=== PATIENT | female | born 1955 | race Caucasian/White ===

== ENCOUNTER → 2016-05-13 | Outpatient (CLI) | payer OTHER ==
[~2016-05-13] MED LIST: IOPAMIDOL (ISOVUE 370) 100 ML BTL IV ONE
--- NOTE | 2016-05-13 17:24 | CT ---
CT Angiography of the Abdomen Clinical Indications: Follow up aortic aneurysm. Technique: Thinly collimated multidetector helical data were obtained through the abdomen during the arterial phase of contrast enhancement. Repeat 5-mm cut images were then obtained in venous phase. Images were then transferred to an independent workstation where multiplanar and three-dimensional r econstructions were performed by the interpreting physician. 90 mL of Isovue-370 were administered i ntravenously by bolus power injection without complication. Dose reduction techniques were utilized. COMPARISON: February 2012, February 2014. 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 The thrombosed sac measures 1.3 x 1.1 cm. The subjacent aorta measure s 1.2 x 1.4 cm. No new ulceration, aneurysm, or dissection. The rest of the vessels are normal. Th is includes three right-sided renal arteries, single left dominant renal artery, widely patent SMA, I MA, and celiac trunk. The visceral vessels are normal, as well. Bilateral iliac arteries are normal down to the common fem oral arteries. CT Abdomen: Lung bases are clear. No developing adenopathy. No fluid collection or mass. There is a moderate amount of stool throughout the colon. The patient is status post cholecystectomy. Impressions 1. 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 2. No new aneurysm or ulceration. 3. Constipation. E:amm
== END ==
LOC: FIMAGING 11:43
PROVIDERS: ATTEND Internal Medicine Interventional Cardiology
DX: I71.4 Abdominal aortic aneurysm, without rupture (principal); K59.00 Constipation, unspecified
CPT/HCPCS: Q9967

== ENCOUNTER 2017-04-16 09:23 | Observation (INO) | payer OTHER ==
[2017-04-16] MEDS ORDERED: DIAZEPAM 5 MG TAB PO ONE (09:30)
[2017-04-16] MEDS ORDERED: NS 1,000 ML IV ONE (09:30)
[2017-04-16] MEDS ORDERED: ASPIRIN EC 325 MG TAB PO ONE ×2 (09:30→10:08)
[2017-04-16] MEDS ORDERED: FAMOTIDINE 20 MG TAB PO ONE (09:30)
[2017-04-16] MEDS ORDERED: diphenhydrAMINE 25 MG CAP PO ONE ×2 (09:30→10:08)
--- NOTE | 2017-04-16 09:51 | CPEKG ---
Heart Rate: 68 RR Interval: 882 P-R Interval: 188 QRSD Interval: 106 QT Interval: 404 QTC Interval: 430 P [place]: 62 QRS [place]: -40 T Wave [place]: 62 EKG Severity - BORDERLINE ECG - EKG Impression: SINUS RHYTHM EKG Impression: BORDERLINE IVCD WITH LAD Electronically Signed By: Maxwell Russell 16-Apr-2017 11:44:14
[2017-04-16] MEDS ORDERED: FAMOTIDINE 20 MG TAB ONE (10:08)
[2017-04-16] MEDS ORDERED: DIAZEPAM 5 MG TAB ONE (10:09)
[2017-04-16 10:11] LABS: PLATELET COUNT 182 10^3/uL (150-400)
[2017-04-16 10:20] LABS: INR 0.97 (0.83-1.16); PROTIME(PATIENT) 13.1 SEC (12.0-15.0)
[2017-04-16] MEDS ORDERED: MIDAZOLAM 2 MG/2 ML VIAL ONE (11:07)
[2017-04-16] MEDS ORDERED: LIDOCAINE 1% 300 MG/30 ML SDV ONE (11:07)
[2017-04-16] MEDS ORDERED: fentaNYL 100 MCG/2 ML INJ ONE (11:07)
[2017-04-16] MEDS ORDERED: VERAPAMIL 5 MG/2 ML VIAL ONE (11:07)
[2017-04-16] MEDS ORDERED: HEPARIN 10,000 UNIT/10 ML MDV ONE (11:07)
[2017-04-16] MEDS ORDERED: IOPAMIDOL (ISOVUE-370) 150 ML BTL IV ONE ×2 (11:07→12:46)
--- NOTE | 2017-04-16 11:36 | PDPROPOC ---
Sedation Plan of Care Sedation Plan of Care: vital signs stable, mental status noted, patient educated of risks, benefits, alternatives, patient can tolerate sedation Planned drugs: other (in light of previous reaction under consious sedation will ask anesthesia for assistance.) Mallampati Reference Image:
--- NOTE | 2017-04-16 11:37 | PDHPUP ---
History & Physical Update H&P update statement: This history and physical update is based on an assessment of the patient which was completed after admission or registration (within 24 hours), but prior to the surgery/procedure. H&P update: H&P reviewed & patient examined, no change in patient's condition since H&P completed
[2017-04-16] MEDS ORDERED: PROPOFOL/EMULSION 500 MG/50 ML BOTTLE IV ONE ×2 (11:44→12:31)
[2017-04-16] MEDS ORDERED: NITROGLYCERIN 1,500 MCG/15 ML VIAL MISC ONE (12:40)
--- NOTE | 2017-04-16 12:50 | PDANEPAE ---
ANE Past Medical History - Cardiovascular History Hx Hypertension: No Hx Arrhythmias: No Hx Coronary Artery / Peripheral Vascular Disease: Yes Hx CHF / Valvular Disease: No Hx Palpitations: No - Pulmonary History Hx COPD: No Hx Asthma/Reactive Airway Disease: No Hx Recent Upper Respiratory Infection: No Hx Oxygen in Use at Home: No Hx Sleep Apnea: No - Endocrine History Hx Diabetes: No Hypothyroid: No Hyperthyroid: No Obesity: no ANE Review of Systems Review of Systems: - Exercise capacity METS (RN): 4 METS ANE Patient History - Allergies Allergies/Adverse Reactions: bisacodyl Allergy (Verified 12/07/13 09:42) bupropion HCl [From Wellbutrin] Allergy (Verified 12/07/13 09:53) - Home Medications Home Medications: Aspirin [Aspirin 81mg (*)] 81 mg PO DAILY 12/07/13 [Last Taken 04/15/17] Cholecalciferol Vit D3 [Vitamin D3 (*)] 5,000 units PO DAILY 12/07/13 [Last Taken 04/15/17] Escitalopram Oxalate [Lexapro] 20 mg PO DAILY 12/07/13 [Last Taken 04/15/17] [place]-3 Fatty Acids [Fish Oil 1000 mg (*)] 1,000 mg PO DAILY 12/07/13 [Last Taken 04/15/17] Simvastatin [Zocor] 80 mg PO DAILY18 12/07/13 [Last Taken 04/15/17] Calcium Carbonate [Oyster Shell Calcium 500 mg (*)] 500 mg PO DAILY 04/15/17 [ Last Taken 04/15/17] Diclofenac Sodium 1% [Voltaren Gel (*)] 1 juan TP DAILY PRN 04/15/17 [Last Taken Unknown] Herbals/Supplements -Info Only 1 ea PO DAILY 04/15/17 [Last Taken 04/15/17] Nitroglycerin [Nitrostat 0.4 mg (*)] 0.4 mg PO DAILY PRN 04/15/17 [Last Taken Unknown] - Anes Hx Anes Hx: no prior problems - Smoking Hx Smoking Status: Never smoked - Alcohol Use Alcohol Use: Rarely - Family Anes Hx Family Anes Hx: none ANE Labs/Vital Signs - Labs Result Diagrams: 04/16/17 10:00 04/16/17 10:00 - Vital Signs Height: 165.1 cm Weight: 81.647 kg ANE Physical Exam - Airway Neck exam: FROM Mallampati Score: Class 2 Mouth exam: normal dental/mouth exam - Pulmonary Pulmonary: no respiratory distress, no rales or rhonchi, clear to auscultation - Cardiovascular Cardiovascular: regular rate and rhythym ANE Anesthesia Plan Anesthesia Plan: GA with mask, MAC Total IV Anesthesia: Yes
[2017-04-16] MEDS ORDERED: CLOPIDOGREL BISULFATE 75 MG TAB ONE (13:15)
[2017-04-16] MEDS ORDERED: ONDANSETRON 4 MG/2 ML VIAL IVP PRN (13:35)
[2017-04-16] MEDS ORDERED: TEMAZEPAM 15 MG CAP PO PRN (13:35)
[2017-04-16] MEDS ORDERED: ATROPINE SULFATE 1 MG/10 ML SYR IVP PRN (13:35)
[2017-04-16] MEDS ORDERED: CLOPIDOGREL BISULFATE 75 MG TAB PO ONE ×2 (13:35→13:45)
[2017-04-16] MEDS ORDERED: NITROGLYCERIN 0.4 MG BTL SL PRN (13:35)
--- NOTE | 2017-04-16 13:39 | PDDXCAT ---
Diagnostic Cath Note - . Date: 04/16/17 Supervisor Cartography: Kelvin Indication: CCC Class III and IV angina on medical treatment - Procedure Access: left wrist Procedure: left heart catheterization, coronary angiography, left ventriculogram - Materials Left Heart Cath size: 5F Left Heart Cath materials: standard multipack (JL4, JR4, pigtail) - Findings-Left Heart Catheterization LM: Unobstructed LAD: Widely stented in the proximal mid LAD. Focal area of narrowing in the mid stent of 80%. LCX: Unobstructed RCA: Dominant: Unobstructed EDP: 15 mm of mercury LVEF: 72 Wall motion: Normal Complications: None Estimated blood loss: <50ml Closure method: TR Band Assessment: Focal area of stenosis in the mid LAD in site of prior stenting. Preserved LV systolic function. Plan: PCI Intervention: After reviewing diagnostic angiograms elected to proceed with PCI. Patient was anticoagulated fully with heparin. Therapeutic ACT was confirmed. The radial artery sheath was upsized to 6 Polish. Using a 6 Polish EBU 3 guiding catheter left main was selectively intubated. Guiding shots were performed. Using a 0.014 luge wire the LAD was crossed and the wire placed in the distal vessel. Focal area of stenosis was primarily stented with a 3.0 x 16 mm synergy stent. A 3.5 x 20 mm synergy stent was placed proximally. The new stents were post dilated with a 3.75 x 20 mm noncompliant balloon. For details please see attached computer report. Technical difficulties: Small aortic root requiring 3.0 EBU guiding catheter. Propofol anesthesia for comfort and to avoid radial artery spasm. Complications none. Final diagnosis successful PCI and stenting of the LAD. Patient Problems: Problems Problem Status Onset Status post insertion of drug-eluting stent into left anterior descending (LAD) artery Acute Coronary artery disease Acute
--- NOTE | 2017-04-16 15:08 | POSTANESTH ---
Post Anesthetic Evaluation Cardiovascular Status: Normal, Stable Respiratory Status: Normal, Stable Level of Consciousness/Mental Status: Can Participate in Eval Pain Control: Adequate, Prn Tx Ordered Nausea/Vomiting Control: Adequate, Prn Tx Ordered Complications Possibly Related to Anesthesia: None Noted
--- NOTE | 2017-04-16 15:59 | CPEKG ---
Heart Rate: 60 RR Interval: 1000 P-R Interval: 208 QRSD Interval: 110 QT Interval: 428 QTC Interval: 428 P [place]: 65 QRS [place]: -41 T Wave [place]: 6 EKG Severity - ABNORMAL ECG - EKG Impression: SINUS RHYTHM EKG Impression: NONSPECIFIC IVCD WITH LAD EKG Impression: CONSIDER ANTEROSEPTAL INFARCT Electronically Signed By: Maxwell Russell 16-Apr-2017 15:59:21
[2017-04-16] MEDS: ACETAMINOPHEN 500 MG TAB PO PRN (20:55)
[2017-04-16] MEDS ORDERED: ATORVASTATIN CALCIUM 40 MG TAB PO SCH (21:00)
[2017-04-16] MEDS ORDERED: ESCITALOPRAM OXALATE 10 MG TAB PO SCH (21:00)
[2017-04-17 07:09] VITALS: BP 117/65; PULSE 61; RESP 12; TEMP 98.3; O2SAT 95
[2017-04-17] MEDS ORDERED: OMEGA-3 FATTY ACIDS 1,000 MG CAP PO SCH (09:00)
[2017-04-17] MEDS ORDERED: ASPIRIN EC 325 MG TAB PO SCH (09:00)
[2017-04-17] MEDS ORDERED: CLOPIDOGREL BISULFATE 75 MG TAB PO SCH (09:00)
[2017-04-17] MEDS ORDERED: CHOLECALCIFEROL VIT D3 1,000 UNITS TAB PO SCH (09:00)
[2017-04-17] MEDS ORDERED: ASPIRIN 81 MG CHEWABLE TAB PO SCH (09:00)
[2017-04-17] MEDS ORDERED: CALCIUM CARBONATE 500 MG TAB PO SCH (09:00)
[2017-04-17] MEDS: ACETAMINOPHEN 500 MG TAB PO PRN (09:21)
--- NOTE | 2017-04-17 10:04 | ASMTCASEMG ---
Living Arrangements What is your living Answers: With Spouse arrangement? Who do you live with? Type Of Residence What kind of residence do Answers: House you live in? Discharge Plan Comments Coordination Status Comments Notes: CM spoke w/ LILY Murry regarding d/c POC. Pt is a 62 y/o female admitted for a CAF s/p stent to LAD procedure. Anticipates that pt will d/c independent when medically stable w/ supportive . No therapies ordered at this time. CM available for d/c needs. Plan: Independent Date Signed: 04/17/2017 10:04 AM Electronically Signed By:EDUARDO Crouch
--- NOTE | 2017-04-17 12:08 | GDS ---
[f rep st] DISCHARGE SUMMARY DIAGNOSES: 1. New-onset angina with [place] Cardiac System 3 symptoms, status post percutaneous transluminal c oronary angioplasty and stenting to [id number]-[id number] left anterior descending in this admission. 2. History of coronary artery disease with acute coronary syndrome in the past, percutaneous coronar y intervention of left anterior descending in 1999, and then subsequent stenting in 2001 and 2006. 3. 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 4. Dyslipidemia. 5. Hypothyroidism. PROCEDURES: 1. 04/16/2017, left heart catheterization, which showed an unobstructed left main, widely stented LA D in the proximal mid region with a focal area of stenosis in mid stent at 80%, unobstructed left cir cumflex, unobstructed right coronary artery, LVEDP of 15, LVEF of 72%. 2. Percutaneous intervention to the vlspmutv-mu-dge LAD with a 3.0 x 16 Synergy stent as well as 3.5 x 20 mm Synergy stent in LAD. BRIEF HISTORY: Please see dictated H and P from our office for complete details. In brief, the galilea apolinar is a 62-year-old female with previous single-vessel disease affecting her LAD, who started to not e exertional angina in the recent few weeks. She proceeded to outpatient MPI, which was abnormal wit h chest pain on exertion, as well as a 1.8-second pause. She was therefore advised to proceed to lef t heart catheterization for risk stratification. HOSPITAL COURSE BY PROBLEM: 1. New-onset exertional angina equivalent CCS 3 symptoms: She was found to have severely obstructiv e disease affecting focal area of her LAD. This was treated with PTCA and stenting x2. On day of , she has not noticed further chest pain. Her left wrist site was cannulated and is stable at time of discharge. 2. Dyslipidemia: Her total cholesterol is 155, LDL cholesterol 79, HDL cholesterol 52, and triglyce rides of 120. RESULTS PENDING: None. DISCHARGE PHYSICAL EXAMINATION: VITAL SIGNS: Blood pressure 117/65, heart rate 61, respirations 12, O2 saturation 95% on room air, temp of 98.3 degrees Fahrenheit. GENERAL: A pleasant female in no a pparent distress. HEENT: Normocephalic, atraumatic. Eyes are without scleral icterus. HEART: Reg ular rate and rhythm. LUNGS: Clear. Left wrist site has a 2+ radial pulse. EXTREMITIES: Warm, an d she is neurovascularly intact. LABORATORY DATA: BMP with sodium 145, potassium 4.1, chloride 108, CO2 25, BUN 12, creatinine 0.8, g lucose of 84. CBC with WBC 4.86, hemoglobin 15.5, hematocrit 39, platelet count 182. RESULTS PENDING: None. DIET: Cardiac diet. ACTIVITY: Wrist precautions were reviewed. Patient also advised to consider cardiac rehab. DISCHARGE MEDICATIONS: Please see med reconciliation. Her new medication is Plavix 75 mg p.o. daily . This was sent via [employer] through [employer]. Other home medications are being continued without c hanges; these include Lexapro, cholecalciferol, simvastatin, omega-3 fatty acids, nitroglycerin, calc ium, aspirin, and Voltaren gel. FOLLOWUP INSTRUCTIONS: 1. Wrist precautions. 2. Follow up in 1 week's time with Radha. 3. Follow up with Dr. Warren in 1 month's time. /[id number]/MODL
--- NOTE | 2017-04-17 12:26 | ASDISCHSUM ---
Discharge Information Plan Status:Home with No Needs Medically Cleared to Leave:04/16/2017 Discharge Date:04/17/2017 11:22 AM CM D/C Disposition: ADT D/C Disposition:Home, Routine, Self-Care Projected Discharge Date:04/17/2017 12:00 AM Transportation at D/C: Discharge Delay Reason: Follow-Up Date:04/17/2017 12:00 AM Discharge Slot: Final Diagnosis: Placement Information Patient Contact Information Contact Name:DANYELL Relationship: Address:[address] Work Phone: City:[place] Alternate Phone: [facility]/Zip Code:[place] [address] Email: Financial Information Financial Class:[facility] Primary Plan Desc:[employer] LOCAL Primary Plan Number:[id number] Secondary Plan Desc: Secondary Plan Number: Assessment Information [facility] Initial CM Assessment Living Arrangements What is your living Answers: With Spouse arrangement? Who do you live with? Type Of Residence What kind of residence do Answers: House you live in? Discharge Plan Comments Coordination Status Comments Notes: CM spoke w/ LILY Murry regarding d/c POC. Pt is a 62 y/o female admitted for a CAF s/p stent to LAD procedure. Anticipates that pt will d/c independent when medically stable w/ supportive . No therapies ordered at this time. CM available for d/c needs. Plan: Independent Date Signed: 04/17/2017 10:04 AM Electronically Signed By:EDUARDO Crouch Intervention Information
== END 2017-04-17 11:22 | disposition home or self-care (01) ==
LOC: FCATH 09:23 → F2W 15:51
PROVIDERS: ADMIT Internal Medicine Interventional Cardiology; ATTEND Internal Medicine Interventional Cardiology
PROC: B2111ZZ Fluoroscopy of Multiple Coronary Arteries using Low Osmolar Contrast (ICD-10-PCS; principal; 2017-04-16)
PROC: 4A023N7 Measurement of Cardiac Sampling and Pressure, Left Heart, Percutaneous Approach (ICD-10-PCS; principal; 2017-04-16)
PROC: 027034Z Dilation of Coronary Artery, One Artery with Drug-eluting Intraluminal Device, Percutaneous Approach (ICD-10-PCS; principal; 2017-04-16)
PROC: B2151ZZ Fluoroscopy of Left Heart using Low Osmolar Contrast (ICD-10-PCS; principal; 2017-04-16)
DX: I25.119 Atherosclerotic heart disease of native coronary artery with unspecified angina pectoris (principal); E78.5 Hyperlipidemia, unspecified; I71.4 Abdominal aortic aneurysm, without rupture; E03.9 Hypothyroidism, unspecified
CPT/HCPCS: 92928; 93005; 93458; C1725; C1769; C1887; G0378; C1874; C9600; J1644; J2250; J2704; J3010; Q9967

== ENCOUNTER 2017-09-26 10:42 | Day surgery (SDC) | payer OTHER ==
[2017-09-26] MEDS ORDERED: LR 1,000 ML IV ONE (11:02)
[2017-09-26] MEDS ORDERED: LIDOCAINE 1% 2 ML INJ ID PRN (11:02)
--- NOTE | 2017-09-26 11:56 | PDGENHP ---
History & Physical Chief Complaint: screening History of Present Illness: screening Pertinent Past, Social, Family History: no tobacco. no alcohol. grandparnet with cc Relevant Physical Exam: A+Ox3. CTA. S12S2. +BS, soft nt Cardiorespiratory Assessment: class 3
--- NOTE | 2017-09-26 12:06 | PDANEPAE ---
ANE History of Present Illness Patient presents for colonoscopy ANE Past Medical History - Cardiovascular History Hx Hypertension: No Hx Arrhythmias: No Hx Coronary Artery / Peripheral Vascular Disease: Yes Hx CHF / Valvular Disease: No Hx Palpitations: No Cardiovascular History Comment: ABD AORTIC ANEURYSM ~3.5 OBSERVING BY HERB. ON PLAVIX-5 STENTS. - Pulmonary History Hx COPD: No Hx Asthma/Reactive Airway Disease: No Hx Recent Upper Respiratory Infection: No Hx Oxygen in Use at Home: No Hx Sleep Apnea: No Sleep Apnea Screening Result - Last Documented: Negative - Neurologic History Hx Cerebrovascular Accident: No Hx Seizures: No Hx Dementia: No - Endocrine History Hx Diabetes: No - Renal History Hx Renal Disorders: No - Liver History Hx Hepatic Disorders: No - Neurological & Psychiatric Hx Hx Neurological and Psychiatric Disorders: Yes Neurological / Psychiatric History Comment: CHEMICAL DEPRESSION -ON RX - Cancer History Hx Cancer: No - Congenital Disorder History Hx Congenital Disorders: No - GI History Hx Gastrointestinal Disorders: No - Other Health History Other Health History: NONE - Chronic Pain History Chronic Pain: Yes - Surgical History Prior Surgeries: PCI-LAD 04-16-17;. R HAND SX '14. L HAND SX '. MID FT FUSION '. R KNEE SCOPE. TRIGGER FINGER RELEASE. BILAT ROTATOR CUFF SX;. LAP JOSEFA '. LUM RASCON/DISCECTOMY '. BREAST REDUCTION '. HYSTERECTOMY ' . BREAST LUMP EXCISION. TONSILLECTOMY ANE Review of Systems Review of Systems: - Exercise capacity METS (RN): 4 METS ANE Patient History - Allergies Allergies/Adverse Reactions: bisacodyl Allergy (Verified 09/09/17 16:46) Anaphylaxis bupropion HCl [From Wellbutrin] Allergy (Verified 09/09/17 16:46) Other-Enter Comments - Home Medications Home medications: home medication list seen and reviewed Home Medications: Aspirin [Aspirin 81mg (*)] 81 mg PO DAILY 12/07/13 [Last Taken 1 Week Ago ~09/19] [place]-3 Fatty Acids [Fish Oil 1000 mg (*)] 1,000 mg PO DAILY 12/07/13 [Last Taken 1 Week Ago ~09/19/17] Simvastatin [Zocor] 80 mg PO DAILY18 12/07/13 [Last Taken 1 Day Ago ~09/25/17] Calcium Carbonate [Oyster Shell Calcium 500 mg (*)] 500 mg PO DAILY 04/15/17 [ Last Taken 1 Week Ago ~09/19/17] Diclofenac Sodium 1% [Voltaren Gel (*)] 1 juan TP DAILY PRN 04/15/17 [Last Taken 1 Week Ago ~09/19/17] Herbals/Supplements -Info Only 1 ea PO DAILY 04/15/17 [Last Taken 1 Week Ago ~] DULoxetine 09/09/17 [Last Taken 1 Day Ago ~09/25/17] VAGIFEM 09/09/17 [Last Taken 09/22/17] - NPO status NPO Status: no food or drink >8 hours NPO Since - Liquids (Date): 09/26/17 NPO Since - Liquids (Time): 08:30 NPO Since - Solids (Date): 09/25/17 NPO Since - Solids (Time): 08:00 - Smoking Hx Smoking Status: Never smoked ANE Labs/Vital Signs - Vital Signs Blood Pressure: 131/81 Heart Rate: 80 Respiratory Rate: 16 O2 Sat (%): 94 Height: 157.48 cm Weight: 80.286 kg ANE Physical Exam - Airway Neck exam: FROM Mouth exam: normal dental/mouth exam - Pulmonary Pulmonary: no respiratory distress - Cardiovascular Cardiovascular: regular rate and rhythym - ASA Status ASA Status: III ANE Anesthesia Plan Anesthesia Plan: GA with mask (RBA discussed)
[2017-09-26] MEDS ORDERED: LIDOCAINE 2% 5 ML SDV ONE (12:07)
[2017-09-26] MEDS ORDERED: PROPOFOL/EMULSION 500 MG/50 ML BOTTLE IV ONE (12:07)
[2017-09-26] MEDS ORDERED: LR 500 ML IV PRN (12:39)
[2017-09-26] MEDS ORDERED: ONDANSETRON 4 MG/2 ML VIAL IVP PRN (12:39)
[2017-09-26] MEDS ORDERED: NALOXONE HCL 0.4 MG/ML INJ IVP PRN (12:39)
--- NOTE | 2017-09-26 12:40 | POSTANESTH ---
Post Anesthetic Evaluation Cardiovascular Status: Similar to Pre-Op Cond Respiratory Status: Similar to Pre-op Cond. Level of Consciousness/Mental Status: Mildly Sleepy, Arousable Pain Control: Adequate, Prn Tx Ordered Nausea/Vomiting Control: Adequate, Prn Tx Ordered Complications Possibly Related to Anesthesia: None Noted
--- NOTE | 2017-09-26 12:42 | GIREPORT ---
[facility] Surgical Services - Endoscopy Department Patient Name: Gail Daley Procedure Date: 09/26/2017 11:34 AM Patient Type: Outpatient Attending MD/ ER Physician: Edward Kelly Procedure: Colonoscopy Indications: Screening for colorectal malignant neoplasm (her diarreha resolved with use of probiotics) Providers: Robbi Aguilar MD Referring MD: Maru Velez Medicines: Total IV Anesthesia (TIVA) = IV general w/o airway Complications: No immediate complications. Description of Procedure: After obtaining informed consent, the scope was passed under direct vis ion. Throughout the procedure, the patient's blood pressure, pulse, and oxyg en saturations were monitored continuously. The Colonoscope with irrigatio n channel was introduced through the anus and advanced to the terminal il eum, with identification of the appendiceal orifice and IC valve. The colono scopy was performed without difficulty. The patient tolerated the procedure w ell. The quality of the bowel preparation was good. Findings: The digital rectal exam was normal. The terminal ileum appeared normal. The entire examined colon appeared normal. Estimated Blood Loss: Estimated blood loss: none. Post Op Diagnosis: - The examined portion of the ileum was normal. - The entire examined colon is normal. - No specimens collected. Recommendation: - Resume previous diet. - Repeat colonoscopy in 10 years for screening purposes. - Patient has a contact number available for emergencies. The signs and symptoms of potential delayed complications were discussed with the pat ient. Return to normal activities tomorrow. Written discharge instructions we re provided to the patient. - Continue present medications. - Discharge patient to home (ambulatory). - Return to primary care physician as previously scheduled. - Thank you for allowing me to help in your patient's care. Do not hesi youngblood to call with any questions. Attending Participation: I personally performed the entire procedure. Lauren Culp M.D Robbi W MD Lauren 09/26/2017 12:41:32 PM This report has been signed electronicallyMathew MD Lauren Number of Addenda: 0 Note Initiated On: 09/26/2017 11:34 AM Total Procedure Duration Time 0 hours 17 minutes 10 seconds [email or web address]
[2017-09-26 14:01] VITALS: BP 134/67
== END 2017-09-26 14:00 | disposition home or self-care (01) ==
LOC: FSGY 10:42
PROVIDERS: ATTEND Internal Medicine Gastroenterology
PROC: 0DJD8ZZ Inspection of Lower Intestinal Tract, Via Natural or Artificial Opening Endoscopic (ICD-10-PCS; principal; 2017-09-26 12:00)
DX: Z12.11 Encounter for screening for malignant neoplasm of colon (principal); I71.4 Abdominal aortic aneurysm, without rupture; Z80.0 Family history of malignant neoplasm of digestive organs; Z95.5 Presence of coronary angioplasty implant and graft
CPT/HCPCS: J2704